=== PATIENT | male | born 1945 | race Caucasian/White ===

== ENCOUNTER 2018-11-15 06:31 | Day surgery (SDC) | payer OTHER ==
[2018-11-15] MEDS ORDERED: Ringers Lactate 1,000 ML IV ONE (07:08)
[2018-11-15] MEDS ORDERED: TOBRADEX 0.3-0.1% OPTH OINTMENT ONE (07:14)
[2018-11-15] MEDS ORDERED: BSS OPTHALMIC SOL 15 ML BOT OPTH ONE (07:14)
[2018-11-15] MEDS ORDERED: GENTAMICIN SULF 80 MG/2ML INJ ONE (07:14)
[2018-11-15] MEDS ORDERED: NA CHLORIDE 0.9% 250 ML ONE (07:15)
[2018-11-15] MEDS ORDERED: POVIDONE-IODINE 5% EYE DROPS ONE (07:15)
[2018-11-15] MEDS ORDERED: PROPOFOL 200 MG/20 ML VIAL IV ONE (07:26)
[2018-11-15] MEDS ORDERED: FENTANYL CITR 100 MCG/2 ML ONE (07:26)
[2018-11-15] MEDS ORDERED: MIDAZOLAM HCL 2 MG/2 ML INJ ONE (07:26)
[2018-11-15] MEDS ORDERED: LIDOCAINE 2% MPF 5 ML VIAL ONE (07:26)
[2018-11-15] MEDS ORDERED: ONDANSETRON 4 MG/2 ML VIAL ONE (07:26)
[2018-11-15] MEDS ORDERED: EPHEDRINE SULF 50 MG/ML VIAL ONE (07:31)
[2018-11-15] MEDS ORDERED: GLYCOPYRROLATE 0.2 MG/ML SYR ONE ×2 (07:31→08:59)
[2018-11-15] MEDS: HYDROMORPHONE HCL 1 MG/ML INJ ONE ×2 (09:18→09:23)
[2018-11-15] MEDS ORDERED: HYDROMORPHONE HCL 1 MG/ML INJ ONE (09:33)
[2018-11-15] MEDS ORDERED: KETOROLAC 30 MG/ML INJ ONE (09:46)
[2018-11-15] MEDS ORDERED: HYDROCODONE/APAP 10/325 TAB ONE (10:41)
[2018-11-15 12:50] VITALS: O2SAT 94
[2018-11-15] MEDS ORDERED: MORPHINE 2 MG/ML SYR IV ONE (19:00)
[2018-11-15] MEDS ORDERED: TRAMADOL HCL 50 MG TAB PO PRN (19:09)
--- NOTE | 2018-11-15 19:16 | P.CNS ---
Date of Consult: 11/15/18 Reason for Consult: Pain management Requesting Physician: Mikael Pruitt Primary Care Provider: Dr. Whaley Chief Complaint: Pain control History of Present Illness: 73-year-old male presented as a direct admit by ophthalmology for enucleation of the left eye. Hospitalist was consulted for pain management. Patient had enucleation of the left eye due to distant complications of glaucoma. Patient had glaucoma surgery in 1992. He then suffered a retinal detachment after the procedure. 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 For the past several months he has been dealing with chronic pain to the left eye. Enucleation was recommended by ophthalmology. This was done earlier today. Post surgery pain was 9/10. He was given morphine with improvement. Hospitalist was consulted for pain management. When I saw the patient in the hospital room, pain was better controlled. He had been given morphine. He denied any significant headache, chest pain, shortness of breath or fever. Patient stable this time. He his significant other was at bedside. Patient has taking gabapentin, oral hydrocodone in the past for pain. He also has taking tramadol. No relief was noted therefore surgery-enucleation was recommended. Allergies mold Allergy (Verified 11/11/18 10:59) sinus drainage Home medications list reviewed: Yes Home Medications: Atorvastatin Calcium [Lipitor] 20 mg PO BEDTIME 11/11/18 Metoprolol Succinate [Toprol Xl] 12.5 mg PO DAILY AFTER SUPPER 11/11/18 Multivitamin [Multivitamins] 1 each PO DAILY 11/11/18 Hydrocodone 5/APAP 325 [[place] 5/325] 2 tab PO Q4H PRN 11/15/18 - Past Medical/Surgical History -: Esophageal cancer status post surgery -: Complications left eye from glaucoma/retinal detachment -: Chronic tachycardia -: Hyperlipidemia -: Chronic pain -: Bilateral hip replacement -: Cataract surgery left eye -: Embolization of left eye 11/15/2018 -: Tonsillectomy -: Appendectomy -: Inguinal hernia repair -: Esophageal cancer surgery x2 Psychosocial/ Personal History: Patient has a partner. - Family History Mother Medical History: Heart disease, Hypertension, Diabetes Brother Medical History: Heart disease Sister Medical History: Hypertension - Social History Smoking Status: Never smoker Alcohol use: No CD- Drugs: No Caffeine use: Yes Place of Residence: Home Review of Systems General: Unremarkable Eyes: As per HPI ENT: Unremarkable Respiratory: Unremarkable Cardiovascular: Unremarkable Gastrointestinal: Unremarkable Genitourinary: Unremarkable Musculoskeletal: Unremarkable Integumentary: As per HPI (Bandage to the left eye noted) Neurological: Unremarkable Lymphatics: Unremarkable Physical Examination Temp Pulse Resp BP Pulse Ox 97.9 F 57 17 134/65 11/15/18 13:09 11/15/18 13:09 11/15/18 13:09 11/15/18 13:09 General: Alert, In no apparent distress, Oriented x3, Cooperative HEENT: Atraumatic, Normocephalic, Other (Bandage to the left eye in noted. No swelling to the periphery. No erythema noted. No bleeding noted.) Neck: Supple, No Thyromegaly Respiratory: Clear to auscultation bilaterally, Normal air movement Cardiovascular: Normal pulses, Regular rate/rhythm Gastrointestinal: Normal bowel sounds, Soft and benign, Non-distended, No tenderness, No masses, No rebound, No guarding Musculoskeletal: No erythema, No tenderness, No warmth Integumentary: No tenderness/swelling, No erythema, No warmth, No cyanosis Neurological: Normal speech, Normal strength at 5/5 x4 extr, Normal tone, Normal affect Lymphatics: No axilla or inguinal lymphadenopathy Conclusions/Impression: Impression: Status post enucleation of the left eye from prior distant complications of glaucoma Chronic pain Hyperlipidemia History of esophageal cancer Chronic tachycardia Plan: Status post enucleation of the left eye from prior distant complications of glaucoma: Patient appears stable status post enucleation. Continue with wound care. Ophthalmology to continue care. Likely discharge tomorrow with better control of pain. Thank you for the consultation. Daytime hospitalist will continue pain management. Chronic pain: Patient has been on multiple medications in the past for pain including gabapentin, oral hydrocodone. Patient received morphine this afternoon for severe pain postsurgery. Will provide IV morphine as needed for severe pain. Will start gabapentin 100 mg 1 pill twice daily as scheduled. Will provide tramadol 50 mg 1 pill 3 times a day as needed for mild pain and hydrocodone 7.5 1 pill 3 times a day as needed for moderate pain. Will continue to monitor closely and adjust medication. Daytime hospitalist will continue to manage pain. Hyperlipidemia: Restart home medication of Lipitor. History of esophageal cancer: Patient had surgery over the last year. He is cancer-free at this time. Patient prefers full liquid diet. Will change his diet at this time. Chronic tachycardia: Patient takes metoprolol. Will restart medication. Hold if blood pressure systolic less than 120 or heart rate less than 55. Time Spent Managing Pts care (In Minutes): 55
--- NOTE | 2018-11-15 19:25 | OP ---
Date of Procedure: 11/15/2018 Surgeon: Mikael Pruitt MD Help Desk Operator: George Pruitt MD Preoperative Diagnosis: Blind painful left eye. Procedure Performed: Nucleation, left eye. Description Of Procedure: After being properly identified in the preoperative holding area and confi rming the left eye was the correct eye to be removed multiple times with both the patient and his com panion, the patient was taken back to the operating room where a time-out was performed. Patient was then prepped and draped in the normal sterile fashion. Again, examination of the globe prior to rem oval demonstrated an exotropic globe with a disorganized anterior chamber on the left with a normal-a ppearing eye on the right, consistent with our exam both in the office and the preoperative area. Us ing a pair of Sushma scissors, a 360 degree tenotomy was carried out and then each of the extraocul ar muscles was isolated using a muscle hook and then cut free. Once all 6 extraocular muscles had be en disinserted from the globe, a 4-0 silk suture was passed through just anterior to the prior insert ion points of the medial rectus and lateral rectus. The suture was then used to draw the globe anter ior and hold caught while a pair of enucleation scissors was used to cut the optic nerve segment. Th e globe was removed in 1 piece. This was sent for pathological identification only. An 18 mm spheri carlos conformer was placed into the cavity and after hemostasis was achieved, which did not take along with only minimal cautery, the spherical conformer was sewed into the conjunctiva and Tenon capsule u sing a 6-0 running suture x2, first medial to lateral and then subsequently lateral to medial so that there was a double layered closure. Once this had been performed, the second conformer used to ensu re maintenance of the fornix was placed both implanted previously been soaked in gentamicin solution and then using 6-0 Vicryl suture threaded through a bolster, the suture was placed through the throug h the tarsus and tied in a mattress fashion. On tying down the knots for the Vicryl suture, the remn ant end snapped because I was afraid of the possible integrity of the rest of the suture. A secondar y suture was placed through the bolster. Because of the tight apposition of the lid that was origina lly placed, a needle was not able to be threaded through an attempt was made with a Maori needle, bu t due to his flat nature, this was unsuccessful. Therefore, I did use a 5-0 silk suture going throug h the bolster and again tying in a mattress fashion. Knowing that we will have to trim and cut this wound with careful attention not to cut the Vicryl at that time. The patient was thereafter had the drapes removed and a pressure patch placed over the eye as well as over the superior portion of the h ead using Kerlix bandages and he was awoken from general anesthesia and taken to the postoperative ho lding area in stable condition, having tolerated the procedure well. There were no complications. Estimated Blood Loss: Less than 5 mL. Specimen Sent: The whole globe as above. Drain And Implants: Listed as above as well. Patient is to follow up with myself Dr. Mikael Pruitt, the [facility] tomorrow morning . JHONG/KELLEL Voice ID: [id number] Report ID: [id number]
[2018-11-15] MEDS ORDERED: ATORVASTATIN 20 MG TAB PO SCH (21:00)
[2018-11-15] MEDS: HYDROCODONE/APAP 7.5/325 MG TAB PO PRN (21:05)
[2018-11-15] MEDS: GABAPENTIN 100 MG CAP PO SCH (21:06)
[2018-11-15 22:27] VITALS: BMI 23.7
[2018-11-15] MEDS: MORPHINE 2 MG/ML SYR IV PRN ×2 (23:26→23:43)
[2018-11-16] MEDS: HYDROCODONE/APAP 7.5/325 MG TAB PO PRN ×2 (05:48→11:15)
[2018-11-16] MEDS ORDERED: INFLUENZA VACCINE (for 3y+) 0.5 ML DOSE IMVAC ONE (06:00)
[2018-11-16] MEDS: GABAPENTIN 100 MG CAP PO SCH (08:41)
[2018-11-16] MEDS ORDERED: MULTIVITAMIN TAB PO SCH (09:00)
[2018-11-16 12:56] VITALS: BP 115/57; TEMP 97.9
[2018-11-16] MEDS ORDERED: METOPROLOL XL 25 MG TAB PO SCH (17:30)
== END 2018-11-16 15:03 | disposition home or self-care (01) ==
LOC: OR 06:31 → 4TH 17:46 → OR 11-16 15:03
PROVIDERS: ATTEND Ophthalmology
PROC: 08T1XZZ Resection of Left Eye, External Approach (ICD-10-PCS; principal; 2018-11-15 07:30)
DX: H54.40 Blindness, one eye, unspecified eye (principal); I10 Essential (primary) hypertension; R00.0 Tachycardia, unspecified; E78.5 Hyperlipidemia, unspecified; G89.29 Other chronic pain; Z85.01 Personal history of malignant neoplasm of esophagus; Z83.3 Family history of diabetes mellitus; Z82.49 Family history of ischemic heart disease and other diseases of the circulatory system
CPT/HCPCS: 88300; 90471; 65101; J2704; Q2035; J1580; J2250; J3010; J2270 ×2; J1170 ×2; J2405

== ENCOUNTER 2020-06-28 07:20 | Day surgery (SDC) | payer OTHER ==
[2020-06-28] MEDS ORDERED: NS 0.9% VIAL 10 ML ONE (09:40)
[2020-06-28] MEDS: BOTU TOX TYPE A 100 UNIT/VIAL ID ONE ×2 (09:42→10:10)
[2020-06-28] MEDS ORDERED: SUGAMMADEX SODIUM 200 MG/2 ML VIAL IV ONE (09:54)
[2020-06-28] MEDS ORDERED: SUCCINYLCHOLINE 20 MG/ML (10 ML) IV ONE (09:54)
[2020-06-28] MEDS ORDERED: FENTANYL CITR 100 MCG/2 ML ONE (09:56)
[2020-06-28] MEDS ORDERED: propofoL 200 MG/20 ML VIAL IV ONE (09:56)
[2020-06-28] MEDS ORDERED: ONDANSETRON 4 MG/2 ML VIAL ONE (09:57)
[2020-06-28] MEDS ORDERED: dexAMETHasone 4 MG/ML VIAL ONE (09:57)
[2020-06-28] MEDS ORDERED: LIDOCAINE 2% MPF 5 ML VIAL ONE (09:57)
[2020-06-28] MEDS ORDERED: EPINEPHRINE/PF 1 MG/ML AMP ONE (10:02)
[2020-06-28] MEDS ORDERED: LIDOCAINE 1% W/EPI 1:100,000 MDV 20 ML VIAL ONE (10:02)
[2020-06-28] MEDS ORDERED: ROCURONIUM 50 MG/5 ML VIAL IV ONE (10:13)
--- NOTE | 2020-06-28 10:49 | P.BOP ---
Preoperative diagnosis: Dysphagia, CP spasm Postoperative diagnosis: same Primary procedure: Rigid esophagoscopy with theraputic injection Director Of Event Management: NONE,NONE Estimated blood loss: nil Specimen: none Findings: prominent CP muscle, 28 units in 4 7u/0.1ml aliquots Anesthesia: General Complications: None Fluids & blood products: see anestesia record Transferred to: Recovery Room Condition: Good
[2020-06-28 11:16] VITALS: O2SAT 100
--- NOTE | 2020-06-28 12:43 | OP ---
Date of Procedure: 06/28/2020 Surgeon: Iram Quintero MD Preoperative Diagnosis: Dysphagia with cricopharyngeal spasm and history of lower esophageal cancer, status post surgical dissection. Procedure: Rigid esophagoscopy with injection of botulinum toxin to the cricopharyngeus. Description Of Procedure: The patient was brought to the operating room. He was placed under genera l anesthesia. A shoulder roll was placed. The neck was extended and head supported. A rubber tooth guard was applied to the upper dentition. The 25 cm rigid esophagoscopy that was prepared and advan tanya under direct visualization through the oral cavity, oropharynx and hypopharynx, and into the esop hageal introitus. The instrument was slowly advanced examining the mucosa. The cricopharyngeal musc le was noted to be prominent. The scope was passed through this area to the length of the instrument . There were no obvious submucosal or mucosal abnormalities within the esophagus. There was reflux of moderate secretions, which were suctioned. The esophagoscope was then removed and the injection m aterial prepared by surgeon. The 100 units bottle of therapeutic botulinum toxin was reconstituted w ith 1.4 mL of preservative free sterile saline resulting in a concentration of 7 units per 0.1 mL. T he Sidekick injection syringe was filled with the botulinum toxin and the remaining Botox solution wa s placed in the syringe and attached to the needle. The rigid esophagoscopy was repeated and the cri copharyngeal muscle was visualized at the tip of the esophagoscope. Four injections of 0.1 mL were p laced at approximately 0830, 0630, 0530, and 0330 along the posterior aspect of the cricopharyngeus m uscle. A total of 28 units were injected. The area was inspected and there was no significant bleed ing. No additional dilation was felt to be necessary. The esophagoscope was removed slowly, during which time, the piriform sinuses, retinoid true and false vocal folds, epiglottis, vallecula and orop harynx were thoroughly examined and there were no significant mucosal lesions noted. The mouth guard was removed and the patient was returned to care of Anesthesia for awakening and extubation in the o perating room. Due to the necessity for complete paralysis until the conclusion of the procedure, th e patient required paralytics and rapid reversal agent was given by the anesthesiologist to shorten t he overall duration of the case from the end of the surgical case until extubation. Complications: None. Specimens: None. Disposition: The patient will be discharged home later today in the care of friends and family and w ill follow up with Dr. Quintero in 10 days for re-evaluation. MIKAELA Voice ID: [id number] Report ID: [id number]
[2020-06-28 12:45] VITALS: BP 103/54; TEMP 97.6
== END 2020-06-28 12:25 | disposition home or self-care (01) ==
LOC: OR 07:20
PROVIDERS: ATTEND Otolaryngology
PROC: 3E0G8GC Introduction of Other Therapeutic Substance into Upper GI, Via Natural or Artificial Opening Endoscopic (ICD-10-PCS; principal; 2020-06-28 09:15)
DX: R13.10 Dysphagia, unspecified (principal); K22.4 Dyskinesia of esophagus; Z85.01 Personal history of malignant neoplasm of esophagus; Z20.822 Contact with and (suspected) exposure to COVID-19
CPT/HCPCS: 43192; U0003; J2704; J1100; J0330; J0585; J3010; J2405; J0171

== ENCOUNTER 2021-04-21 12:16 | Emergency (ER) | payer MEDICARE, OTHER ==
--- OUTSIDE RECORDS SUMMARY | 2021-04-21 12:18 | XMS REPORT | Continuity of Care Document ---
:1945 Author Organization [facility] t Address [address] [place] [address] Care Team Providers Name Role Phone Agustin Whaley Attending Clinician Unavailable LUPE Attending Clinician Unavailable Ige-Odungenevieve_J_AH Attending Clinician Unavailable Ige-Keturah_J_AH Admitting Clinician Unavailable Payers Payer Name Policy Type Policy Number Effective Date Expiration Date [id number] (MEDICARE 00:00:00 REPLACEMENT HMO) [employer] [place] - [id number] 2019 [employer] (MEDICARE 00:00:00 REPLACEMENT/[place] GE - HMO) Problems This patient has no known problems. Allergies, Adverse Reactions, Alerts This patient has no known allergies or adverse reactions. Medications Ordered Filled Start Stop Current Ordering Indication Dosage Frequency Signature Comments Components Source Medication Medication Date Date Medication? Clinician (SIG) Name Name Escitalopra Escitalopra 2018-02 Yes Na Whaley [address] [facility] Oxalate m Oxalate 1-25 [facility] Flonase Flonase Yes Na Whaley [address] [facility] Lipitor Lipitor Yes Na Whaley [address] [facility] Metoprolol Metoprolol Yes Na Whaley [address] [facility] Succinate Succinate [facility] Cetirizine Cetirizine Yes Na Whaley [address] [facility] HCl HCl [facility] Acetaminoph Acetaminoph Yes Na Whaley [address] [facility] en en as needed [facility] Omeprazole Omeprazole Yes Na Whaley [address] [facility] 30 minutes [facility] before [facility] morning [facility] Procedures This patient has no known procedures. Encounters Start End Encounter Admission Attending Care Care Encounter Source Date/Time Date/Time Type Type Clinicians Facility Department ID 2021-03-12 Outpatient Margarita Whaley [facility] [id number] [facility]13 [facility] 2021-03-12 Outpatient Margarita Whaley [facility] [id number] [facility] 14[facility]30:43 [facility] 2021-03-12 Outpatient Margarita Whaley [facility] [id number] [facility] [address] 12:33:48 [id number] [facility] 2021-03-12 Outpatient Margarita Whaley [facility] [id number] [facility] [address] 12:31:16 [id number] [facility] 2021-03-12 Outpatient Margarita Whaley [facility] [id number] [facility] [address] 11:38:29 [id number] [facility] 2021-02-18 2021-02-18 ambulatory [facility] [id number] [facility] 2020-12-27 2020-12-27 Outpatient [facility] [id number] [facility] 12:00:00 12:00:00 [id number] 2020-10-08 2020-10-08 Outpatient [facility] [id number] [facility] 2020-07-09 2020-07-09 Outpatient [facility] [id number] [facility] 2020-04-11 2020-04-11 Outpatient [facility] [id number] [facility] 2019-10-10 2019-10-10 Outpatient [facility] [id number] [place] 00:00:00 00:00:00 [place] [address] [facility] 2019-10-07 2019-10-07 [facility] [id number] [facility] 17:50:00 17:50:00 [facility] [employer] [facility] 2019-10-05 2019-10-05 [facility] [id number] [facility] 13:00:00 13:00:00 t [employer] [facility] 2019-10-05 2019-10-05 [facility] [id number] [facility] 13:00:00 13:00:00 t [employer] [facility] 2019-09-15 2019-09-15 [facility] [id number] 14:38:00 14:38:00 t [employer] [facility] 2019-04-05 2019-04-05 Outpatient [facility] [id number] [facility] 07:18:00 07:18:00 _J_ [id number] Family Practic e 2019-01-09 2019-01-09 [facility] [id number] [facility] 11[facility]20:00 11:20:00 t [employer] [facility] 2019-01-05 2019-01-05 [facility] [id number] [facility] 16:43:00 16:43:00 t [employer] [facility] 2018-09-07 2018-09-07 [facility] [id number] [facility] 10:40:00 10:40:00 t [employer] [facility] 2018-06-10 2018-06-10 [facility] [id number] [facility] 01:31:00 01:31:00 t [employer] [facility] 2018-06-06 2018-06-06 [facility] [id number] [facility] 14:40:00 14:40:00 t [employer] [facility] 2018-03-07 2018-03-07 [facility] [id number] [facility] 11:00:00 11:00:00 t [employer] [facility] 2018-02-17 2018-02-17 [facility] [id number] [facility] 15:54:00 15:54:00 t [employer] [facility] 2018-02-01 2018-02-01 [facility] [id number] [facility] 10:07:00 10:07:00 t [employer] [facility] 2018-01-31 2018-01-31 [facility] [id number] [facility] 12:33:00 12:33:00 t [employer] [facility] 2017-10-07 2017-10-07 [facility] [id number] [facility] 14:00:00 14:00:00 t [employer] [facility] Results This patient has no known results.
[2021-04-21 13:16] LABS: Absolute Lymphocytes (CBC) 1.7 K/uL (0.7-4.9); Hematocrit 41.1 % (39.6-49.0); Lymphocytes % 30.5 % (15.3-44.8); MPV 7.8 fL (7.6-11.3); RBC Red Blood Cell Count 4.53 M/uL (4.33-5.43)
[2021-04-21 13:39] LABS: Protime INR 1.03
[2021-04-21 13:45] LABS: Albumin 3.8 g/dL (3.4-5.0); Bilirubin Direct 0.1 mg/dL (0-0.2); Bilirubin Total 0.5 mg/dL (0.2-1.0); Magnesium 2.6 mg/dL (1.8-2.4); Potassium 4.6 mmol/L (3.5-5.1); Protein, Total 7.1 g/dL (6.4-8.2)
--- NOTE | 2021-04-21 14:18 | RAD REPORT ---
EXAM DESCRIPTION: RAD - Chest Single View - 04/21/2021 2:06 pm CLINICAL HISTORY: CHEST PAIN Chest pain. COMPARISON: Chest Pa And Lat (2 Views) dated 08/24/2016 FINDINGS: Portable technique limits examination quality. Postsurgical changes are present in the mediastinum. The lungs are emphysematous. No focal infiltrate is evident. The heart is normal in size. The inferior portion of both lungs is excluded from the pro jection. IMPRESSION: Moderate COPD.
--- NOTE | 2021-04-21 14:59 | RAD REPORT ---
EXAM DESCRIPTION: CT - Chest For Pe Angio - 04/21/2021 2:44 pm CLINICAL HISTORY: Chest pain. CHEST PAIN COMPARISON: No comparisons TECHNIQUE: CT angiogram of the pulmonary arteries was performed with MIP. All CT scans are performed using dose optimization technique as appropriate and may include automated exposure control or mA/KV adjustment according to patient size. FINDINGS: No evidence of pulmonary thromboembolism. No acute aortic finding demonstrated. The lungs are clear. Postsurgical changes are present about the esophagus. No significant pericardial or pleural fluid. No concerning bony finding. IMPRESSION: No evidence of pulmonary thromboembolism. No acute lung findings. Postsurgical changes are present about the esophagus.
--- NOTE | 2021-04-21 15:03 | RAD REPORT ---
EXAM DESCRIPTION: CTAbdomen Pelvis W Contrast - 04/21/2021 2:44 pm CLINICAL HISTORY: Abdominal pain. ABD PAIN COMPARISON: No comparisons TECHNIQUE: Biphasic CT imaging of the abdomen and pelvis was performed with 100 ml non-ionic IV cont rast. All CT scans are performed using dose optimization technique as appropriate and may include automated exposure control or mA/KV adjustment according to patient size. FINDINGS: The lung bases are clear.Postsurgical changes inferior esophagus. The liver contains a 10 mm cyst in the left lobe. Spleen, pancreas, adrenal glands and kidneys show n o significant abnormal process. No bowel obstruction, free air, free fluid or abscess. Sigmoid diverticulosis coli without diverticul itis. Nonvisualized appendix. No evidence of significant lymphadenopathy. Bilateral hip arthroplasties noted. Moderate lumbar degenerative changes. IMPRESSION: No acute intra-abdominal or pelvic finding. Sigmoid diverticulosis coli without diverticulitis.
[2021-04-21 15:12] LABS: Troponin High Sensitivity 4.6 pg/mL (<58.9)
--- NOTE | 2021-04-21 16:36 | ER ---
Nurse's Notes [facility] Name: Cortes Dubose Jr Age: 75 yrs Sex: Male : 1945 Arrival Date: 04/21/2021 Time: 12:22 Bed 25 Private MD: Diagnosis: Chest Wall Strain Presentation: 04/21 12:28 Chief complaint: Patient states: "I have an increasing pain in my lower rib cage area ab2 on both sides that radiates to my back and it started 10 days ago. Its getting difficult to sleep. It feels like there is a knife in my ribs. My Dr. Mcdonald sent me here for an Xray." Pt denies any chest pain, SOB or urinary symptoms. Coronavirus screen: Vaccine status: Patient reports receiving the 2nd dose of the covid vaccine. Client denies travel out of the [place] in the last 14 days. At this time, the client does not indicate any symptoms associated with coronavirus-19. Ebola Screen: Patient negative for fever greater than or equal to 101.5 degrees Fahrenheit, and additional compatible Ebola Virus Disease symptoms Patient denies exposure to infectious person. Patient denies travel to an Ebola-affected area in the 21 days before illness onset. No symptoms or risks identified at this time. Initial Sepsis Screen: Does the patient meet any 2 criteria? No. Patient's initial sepsis screen is negative. Does the patient have a suspected source of infection? No. Patient's initial sepsis screen is negative. Risk Assessment: Do you want to hurt yourself or someone else? Patient reports no desire to harm self or others. Onset of symptoms is unknown. 12:28 Method Of Arrival: Ambulatory ab2 12:28 Acuity: DILAN 4 ab2 12:35 Chief complaint:. ab2 Triage Assessment: 12:33 General: Appears in no apparent distress. uncomfortable, Behavior is calm, cooperative, ab2 appropriate for age. Pain: Complains of pain in diaphragm Pain does not radiate. Pain currently is 8 out of 10 on a pain scale. Pain: Complains of pain in left low back and right low back. EENT: No deficits noted. No signs and/or symptoms were reported regarding the EENT system. Neuro: No deficits noted. Level of Consciousness is awake, alert, obeys commands, Oriented to person, place, time, situation, Appropriate for age Regular Senior Care Provider are equal bilaterally Moves all extremities. Gait is steady, Speech is normal, Facial symmetry appears normal. Cardiovascular: No deficits noted. Denies chest pain, shortness of breath. Respiratory: No deficits noted. Airway is patent Respiratory effort is even, unlabored, Respiratory pattern is regular, symmetrical. GI: No deficits noted. No signs and/or symptoms were reported involving the gastrointestinal system. : No deficits noted. No signs and/or symptoms were reported regarding the genitourinary system. Derm: No deficits noted. No signs and/or symptoms reported regarding the dermatologic system. Skin is intact, is healthy with good turgor, Skin is dry, Skin is pink, warm \\T\\ dry. Musculoskeletal: Range of motion: intact in all extremities, Reports pain in left low back and right low back. Historical: - Allergies: 12:32 No Known Allergies; ab2 - Home Meds: 12:32 atorvastatin oral [Active]; Omeprazole Oral [Active]; ab2 - PMHx: 12:32 esophagus cancer; ab2 - Immunization history:: Adult Immunizations up to date, Client reports receiving the 2nd dose of the Covid vaccine, Pneumococcal vaccine is up to date, Flu vaccine is up to date. - Social history:: Smoking status: Patient denies any tobacco usage or history of. Screenin:33 Abuse screen: Denies threats or abuse. Denies injuries from another. Nutritional ab2 screening: No deficits noted. Tuberculosis screening: No symptoms or risk factors identified. Fall Risk None identified. Assessment: 14:05 Reassessment: see triage. ss7 16:38 Reassessment:. General: Appears in no apparent distress. comfortable, Behavior is calm, ss7 cooperative, appropriate for age. Neuro: Level of Consciousness is awake, alert, obeys commands, Oriented to person, place, time, situation. Cardiovascular: Heart tones S1 S2. Respiratory: Breath sounds are clear bilaterally. GI: Abdomen is flat. : No deficits noted. EENT: No deficits noted. Derm: No deficits noted. Musculoskeletal: No deficits noted. Vital Signs: 12:28 BP 126 / 66; Pulse 56; Resp 18; Temp 98.8(TE); Pulse Ox 100% on R/A; Weight 79.38 kg; ab2 Height 6 ft. 1 in. (185.42 cm); Pain 8/10; 14:00 BP 116 / 62; Pulse 57; Resp 18; Pulse Ox 100% on R/A; ss7 16:38 BP 126 / 56; Pulse 49; Resp 20; Pulse Ox 100% on R/A; ss7 12:28 Body Mass Index 23.09 (79.38 kg, 185.42 cm) ab2 ED Course: 12:22 Patient arrived in ED. ds1 12:32 Triage completed. ab2 12:33 Arm band placed on left wrist. ab2 12:37 Power Barnes PA is PHCP. m 12:37 Deirdre Mccallum MD is Attending Physician. m 13:02 Laura Basurto, SAM is Primary Nurse. ss7 13:03 Basic Metabolic Panel Sent. ss7 13:03 CBC with Diff Sent. ss7 13:03 LFT's Sent. ss7 13:03 Magnesium Sent. ss7 13:03 NT PRO-BNP Sent. ss7 13:03 PT-INR Sent. ss7 13:03 Troponin HS Sent. ss7 14:06 XRAY Chest (1 view) In Process Unspecified. EDMS 14:44 CT Chest For PE Angio In Process Unspecified. EDMS 14:44 CT Abd/Pelvis - IV Contrast Only In Process Unspecified. EDMS 16:39 No provider procedures requiring assistance completed. Inserted saline lock: 20 gauge ss7 in right antecubital area, using aseptic technique. 16:40 Patient has correct armband on for positive identification. ss7 16:53 IV discontinued, intact. ss7 Administered Medications: No medications were administered Outcome: 16:35 Discharge ordered by MD. [facility] 16:39 Discharged to home ambulatory. ss7 16:39 Condition: good 16:39 Discharge instructions given to patient, Instructed on discharge instructions, Demonstrated understanding of instructions. 16:53 Patient left the ED. ss7 Signatures: Dispatcher [employer] EDMS Power Barnes PA PA Georgette Burch ds1 Omar Villalobos ab2 Laura Basurto, RN RN ss7 Corrections: (The following items were deleted from the chart) 12:36 12:28 Chief complaint: Patient states: "I have an increasing pain in my lower rib cage ab2 area on both sides that started 10 days ago. Its getting difficult to sleep. It feels like there is a knife in my ribs. My Dr. Mcdonald sent me here for an Xray." ab2
--- NOTE | 2021-04-21 16:36 | EDPHYS ---
Physician Documentation [facility] Name: Cortes Dubose Jr Age: 75 yrs Sex: Male : 1945 Arrival Date: 04/21/2021 Time: 12:22 Bed 25 Private MD: ED Physician Deirdre Mccallum HPI: 04/21 12:46 This 75 yrs old Male presents to ER via Ambulatory with complaints of Back Pain. jmm 12:46 The patient presents with pain that is acute, with no known mechanism of injury. The jmm symptoms are located in the left subscapular area and right subscapular area. Onset: The symptoms/episode began/occurred gradually, 1 week(s) ago. The pain does not radiate. Associated signs and symptoms: Pertinent negatives: abdominal pain, fever, vomiting, weakness. Modifying factors: The patient symptoms are alleviated by nothing, the patient symptoms are aggravated by any movement, coughing. This is a 75 year old male with a history of esophageal cancer that presents to the ED with complaints of back pain beginning approx 1 week ago. Patient denies fever, vomiting, known injury. Patient is s/p esophageal cancer removal. Patient also complains of right arm pain. Denies weakness or injury. . Historical: - Allergies: 12:32 No Known Allergies; ab2 - Home Meds: 12:32 atorvastatin oral [Active]; Omeprazole Oral [Active]; ab2 - PMHx: 12:32 esophagus cancer; ab2 - Immunization history:: Adult Immunizations up to date, Client reports receiving the 2nd dose of the Covid vaccine, Pneumococcal vaccine is up to date, Flu vaccine is up to date. - Social history:: Smoking status: Patient denies any tobacco usage or history of. ROS: 12:46 Constitutional: Negative for fever, chills, and weight loss, Cardiovascular: Negative jmm for chest pain, palpitations, and edema, Respiratory: Negative for shortness of breath, cough, wheezing, and pleuritic chest pain. 12:46 Back: Positive for pain at rest, pain with movement. 12:46 All other systems are negative. Exam: 12:46 Constitutional: This is a well developed, well nourished patient who is awake, alert, jmm and in no acute distress. Head/Face: atraumatic. Eyes: EOMI, no conjunctival erythema appreciated ENT: Moist Mucus Membranes Neck: Trachea midline, Supple Chest/axilla: Normal chest wall appearance and motion. Cardiovascular: Regular rate and rhythm. No edema appreciated Respiratory: Normal respirations, no respiratory distress appreciated Abdomen/GI: Non distended, soft 12:46 Skin: General appearance color normal MS/ Extremity: Moves all extremities, no obvious deformities appreciated, no edema noted to the lower extremities Neuro: Awake and alert Psych: Behavior is normal, Mood is normal, Patient is cooperative and pleasant 12:46 Back: pain, that is mild, of the left subscapular area and right subscapular area. Vital Signs: 12:28 BP 126 / 66; Pulse 56; Resp 18; Temp 98.8(TE); Pulse Ox 100% on R/A; Weight 79.38 kg; ab2 Height 6 ft. 1 in. (185.42 cm); Pain 8/10; 14:00 BP 116 / 62; Pulse 57; Resp 18; Pulse Ox 100% on R/A; ss7 16:38 BP 126 / 56; Pulse 49; Resp 20; Pulse Ox 100% on R/A; ss7 12:28 Body Mass Index 23.09 (79.38 kg, 185.42 cm) ab2 MDM: 12:46 Patient medically screened. [facility] 16:34 Data reviewed: vital signs, nurses notes. Counseling: I had a detailed discussion with uziel the patient and/or guardian regarding: the historical points, exam findings, and any diagnostic results supporting the discharge/admit diagnosis, lab results, radiology results, the need for outpatient follow up, to return to the emergency department if symptoms worsen or persist or if there are any questions or concerns that arise at home. 17:29 ED course: Patient is alert and non toxic in appearance in the ED. Imaging studies uziel negative for an acute process. Patient advised to follow up with pcp and otherwise given strict return precautions. patient understood and agrees with the plan of care. . 03 12:56 Order name: Basic Metabolic Panel; Complete Time: 15:25 [facility] 04/21 12:56 Order name: CBC with Diff; Complete Time: 13:19 [facility] 04/21 12:56 Order name: LFT's; Complete Time: 15:25 [facility] 04/21 12:56 Order name: Magnesium; Complete Time: 15:25 [facility] 04/21 12:56 Order name: NT PRO-BNP; Complete Time: 15:25 [facility] 04/21 12:56 Order name: PT-INR; Complete Time: 13:39 [facility] 04/21 12:56 Order name: Troponin HS; Complete Time: 15:25 [facility] 04/21 12:56 Order name: XRAY Chest (1 view); Complete Time: 14:20 [facility] 04/21 12:56 Order name: EKG; Complete Time: 12:56 [facility] 04/21 12:56 Order name: Cardiac monitoring; Complete Time: 13:03 [facility] 04/21 12:56 Order name: EKG - Nurse/Tech; Complete Time: 13:33 [facility] 04/21 12:56 Order name: IV Saline Lock; Complete Time: 13:03 [facility] 04/21 14:23 Order name: CT Chest For PE Angio; Complete Time: 15:06 [facility] 04/21 14:23 Order name: CT Abd/Pelvis - IV Contrast Only; Complete Time: 15:06 [facility] 04/21 12:56 Order name: Labs collected and sent; Complete Time: 13:03 [facility] 04/21 12:56 Order name: O2 Per Protocol; Complete Time: 13:03 [facility] 04/21 12:56 Order name: O2 Sat Monitoring; Complete Time: 13:03 [facility] Administered Medications: No medications were administered Disposition Summary: 04/21/21 16:35 Discharge Ordered Location: Home [facility] Condition: Stable [facility] Diagnosis - Chest Wall Strain [facility] Followup: [facility] - With: Private Physician - When: 2 - 3 days - Reason: Recheck today's complaints, Continuance of care, Re-evaluation by your physician Discharge Instructions: - Discharge Summary Sheet [facility] - Rib Contusion [facility] Forms: - Medication Reconciliation Form [facility] - Thank You Letter [facility] - Antibiotic Education [facility] - Prescription Opioid Use [facility] Prescriptions: - Medrol (Albert) 4 mg Oral Tablets, Dose Pack - take 1 tablet by ORAL route as directed - follow package instructions; 1 [facility] packet; Refills: 0, Product Selection Permitted - orphenadrine citrate 100 mg Oral Tablet Sustained Release - take 1 tablet by ORAL route 2 times per day As needed; 20 tablet; Refills: 0, [facility] Product Selection Permitted Signatures: Dispatcher [employer] Power Schneider PA PA jmm Bleininger Omar ab2
[2021-04-21 17:40] VITALS: TEMP 98.8; O2SAT 100
[2021-04-21 17:41] VITALS: BP 116/62
--- NOTE | 2021-04-22 12:51 | EKG ---
Test Date: 2021-04-21 Test Time: 13:18:03 Wastewater Manager: MARYLOU MEASUREMENT RESULTS: Intervals: Rate: 49 IL: 246 QRSD: 88 QT: 454 QTc: 410 [place]: P: 6 IL: 246 QRS: 69 T: 78 INTERPRETIVE STATEMENTS: Marked sinus bradycardia with 1st degree AV block Septal infarct, age undetermined Abnormal ECG Compared to ECG 06/25/2020 14:35:20 First degree AV block now present Myocardial infarct finding now present Electronically Signed On 04-22-21 12:49:38 REPORT WRITER by Tung Mcelroy
== END 2021-04-21 16:53 | disposition home or self-care (01) ==
LOC: ER 12:16
DX: S29.011A Strain of muscle and tendon of front wall of thorax, initial encounter (principal); Z98.890 Other specified postprocedural states; Z85.01 Personal history of malignant neoplasm of esophagus
CPT/HCPCS: 93005; 85025; 80048; 36415; 83735; 85610; 80076; 84484; 83880; 71275; 74177; 71045; Q9967; 99283

== ENCOUNTER 2021-09-09 10:25 | Day surgery (SDC) | payer MEDICARE ==
[2021-09-04 10:26] LABS: Absolute Lymphocytes (CBC) 1.2 K/uL (0.7-4.9); Hematocrit 40.4 % (39.6-49.0); Lymphocytes % 20.8 % (15.3-44.8); MPV 7.5 fL (7.6-11.3); RBC Red Blood Cell Count 4.59 M/uL (4.33-5.43)
[2021-09-04 10:32] LABS: Protime INR 1.13
[2021-09-04 10:38] LABS: SARS-CoV-2 Antigen Rapid Res Negative (Negative)
[2021-09-04 10:47] LABS: Potassium 4.7 mmol/L (3.5-5.1)
[~2021-09-09 10:25] MED LIST: AMPICILLIN SODIUM 2 GM in NA CHLORIDE 0.9% 100 ML IV ONE; Gentamicin Inj 180 MG in NA CHLORIDE 0.9% 100 ML IVPB ONE
[2021-09-09] MEDS ORDERED: Ringers Lactate 1,000 ML IV ONE (10:55)
[2021-09-09] MEDS ORDERED: CELECOXIB 100 MG CAPSULE ONE ×2 (12:04→12:09)
[2021-09-09] MEDS ORDERED: ACETAMINOPHEN 500 MG TAB ONE (12:04)
[2021-09-09] MEDS ORDERED: propofoL 200 MG/20 ML VIAL IV ONE (12:10)
[2021-09-09] MEDS ORDERED: FENTANYL CITR 100 MCG/2 ML ONE (12:10)
[2021-09-09] MEDS ORDERED: LIDOCAINE 1% MPF 5 ML VIAL ONE (12:10)
[2021-09-09] MEDS ORDERED: MIDAZOLAM HCL 2 MG/2 ML INJ ONE (12:21)
[2021-09-09] MEDS ORDERED: Mastisol Adhesive Liq ONE (13:24)
[2021-09-09] MEDS ORDERED: dexAMETHasone 10 MG/ML VIAL ONE (13:27)
[2021-09-09] MEDS ORDERED: KETOROLAC 30 MG/ML INJ ONE (13:27)
[2021-09-09] MEDS ORDERED: ONDANSETRON 4 MG/2 ML VIAL ONE (13:27)
[2021-09-09] MEDS: MORPHINE 4 MG/ML SYR ONE ×2 (13:35→13:45)
[2021-09-09] MEDS ORDERED: CODEINE 30MG/APAP 300MG TAB PO PRN (13:51)
[2021-09-09] MEDS ORDERED: OPIUM/BELLADONNA SUPPOS (30-16.2 MG) PR ONE ×2 (13:51→14:07)
[2021-09-09] MEDS ORDERED: PHENAZOPYRIDINE 100MG TAB PO ONE ×2 (13:51→15:11)
[2021-09-09 17:42] VITALS: BP 120/52; TEMP 96.9; O2SAT 100
--- NOTE | 2021-09-10 00:02 | OP ---
Surgeon: VANITA TEJADA Preoperative Diagnosis: Benign prostatic hypertrophy with lower urinary tract obstruction. Postoperative Diagnosis: Benign prostatic hypertrophy with lower urinary tract obstruction.. Principle Procedure: 1.Cystoscopy and bipolar transurethral resection of the prostate. 2.Urethral dilation using sounds. Indication For Procedure: This is a -zycc-ort gentleman with bothersome obstructive LUTS d ue to BPH complicated by a urinary tract infection in the setting of a history of prostate cancer in his father and brother, following cystoscopic evaluation revealing significant interdigitating latera l lobar hypertrophy with prominently elevated median bar intravesically projecting and obscuring the ureteral orifices. He was counseled on the potential benefit to surgical therapy versus options to i nclude addition of a 5 alpha reductase inhibitor and he elected to proceed with surgical therapy acco rdingly. Procedure Note: The patient was consented in the preoperative holding area before being transferred to the operative suite where general anesthesia was induced. Of note, in the preoperative holding ar ea, he did specifically ask about erectile dysfunction, and I again informed him that any transurethr al prostate procedure does carry the risk of erectile dysfunction, but my personal experience was a v vincent low risk, less than 1% of any patient complaining of difficulties with erectile dysfunction after this procedure. Procedure In Detail: After being placed under general anesthesia, padded and secured to the table ap propriately, he was given ampicillin and gentamicin, IV antimicrobial prophylaxis, and Pneumo boots w ere provided for DVT prophylaxis. He was placed in the lithotomy position, padded and secured to the table appropriately and his genitalia was prepped using Hibiclens and he was draped in standard fash ion. The case was begun using urethral sounds to dilate the meatus and fossa navicularis to 30-Frenc h. Then, using a visual engineering operator and a 26-Latvian bipolar resectoscope, I was able to traverse the ur ethra into the bladder. The bladder was then briefly surveyed and noted to be markedly trabeculated with cellule formation as it has been previously noted on outpatient cystoscopic evaluation. The ure teral orifices were orthotopic in location, and the median lobe was abutting the trigone. I thus beg an by resecting the median lobe with the left ureteral orifice under direct vision and then performed a similar resection with the right ureteral orifice under direct vision. I continued the resection until the entirety of the median bar and intravesically projecting component of the median lobe was r esected down to the level of the bladder neck and the trigone. I then continued the resection to com plete creation of a smooth trough/channel down to the verumontanum. I then resected into the right l ateral lobe starting at the bladder neck and extending to the apex and continuing to the anterior zon e of the prostate. Similar resection was performed on the left side until a nice smooth channel had been created throughout. On the right side, I took care to try to stay away from the capsule of the prostate since the patient was concerned about the risk of erectile dysfunction. On the left side of the prostate, while capsular fat was noted, I avoided extensive fulguration in the region posterolat erally where the neurovascular bundles exists in order to again try to prevent issues with erectile d ysfunction. All prostate chips were Ellik evacuated from his bladder and I verified no injury to the ureteral orifices. Once I was happy with the completion of the resection including to the apex of t he prostate and there was no longer any interdigitating or even kissing lateral lobar hypertrophy, I ensured absolute fulguration of any and all bleeding vessels with the bladder completely decompressed . Once this was done, I then left the bladder full and removed the resectoscope. I then placed a 22 -Latvian 3-way Kwok catheter into his bladder with ease and placed 30 cc sterile water in the balloon . He was then taken out of the lithotomy position, the catheter was placed to moderate traction, and he was awakened from general anesthesia before being transferred to a stretcher and then to the [facility] room in good condition. Complications: None. Discharge Disposition: He has an appointment scheduled for Wednesday for catheter removal and voiding t rial. He will be discharged with 5 days of antimicrobial as well as Tylenol with codeine for pain ma nagement. Subsequent followup may be established in approximately 3 months with me, interval assessment unless the patient is having specific issues or concern in which case I will see him sooner. LAKISHA/CHARLES Voice ID: [id number] Report ID: [id number]
== END 2021-09-09 16:55 | disposition home or self-care (01) ==
LOC: OR 10:25
PROVIDERS: ATTEND Urology
PROC: 0VT08ZZ Resection of Prostate, Via Natural or Artificial Opening Endoscopic (ICD-10-PCS; principal; 2021-09-09 11:45)
DX: N40.1 Benign prostatic hyperplasia with lower urinary tract symptoms (principal); Z20.822 Contact with and (suspected) exposure to COVID-19; Z80.42 Family history of malignant neoplasm of prostate; Z80.52 Family history of malignant neoplasm of bladder; Z85.01 Personal history of malignant neoplasm of esophagus; Z85.828 Personal history of other malignant neoplasm of skin
CPT/HCPCS: 87088; 85025; 87086; 80048; 36415; 85610; 88305; 87811; 52601; J2704; J1580; J2250; J3010; J1100; J7120; J2405; J0290

== ENCOUNTER 2022-11-27 11:37 | Day surgery (SDC) | payer MEDICARE, OTHER ==
[2022-11-25 14:13] LABS: Absolute Lymphocytes (CBC) 1.4 K/uL (0.7-4.9); Hematocrit 36.9 % (39.6-49.0); Lymphocytes % 24.4 % (15.3-44.8); MCV 81.4 fL (80-100); MPV 7.4 fL (7.6-11.3); Platelets 146 thou/uL (152-406); RBC Red Blood Cell Count 4.53 M/uL (4.33-5.43)
[2022-11-25 14:27] LABS: Potassium 4.7 mEq/L (3.5-5.1)
[2022-11-27] MEDS ORDERED: Ringers Lactate 1,000 ML IV ONE (12:11)
[2022-11-27] MEDS ORDERED: propofoL 200 MG/20 ML VIAL IV ONE (14:19)
[2022-11-27] MEDS ORDERED: ROCURONIUM 50 MG/5 ML VIAL IV ONE (14:19)
[2022-11-27] MEDS ORDERED: FENTANYL CITR 100 MCG/2 ML ONE (14:19)
[2022-11-27] MEDS ORDERED: LIDOCAINE 2% MPF 5 ML VIAL ONE (14:19)
[2022-11-27] MEDS: CEFAZOLIN SODIUM 2 GM/VIAL ONE ×2 (14:22→14:45)
[2022-11-27] MEDS: BUPIVACAINE 0.25% PF 30 ML VIAL ONE ×2 (14:22→15:03)
[2022-11-27] MEDS ORDERED: EPHEDRINE SULF 50 MG/ML VIAL ONE (14:56)
[2022-11-27] MEDS ORDERED: KETOROLAC 30 MG/ML INJ ONE (16:01)
[2022-11-27] MEDS: FENTANYL CITR 100 MCG/2 ML ONE ×4 (16:04→16:59)
[2022-11-27] MEDS: HYDROMORPHONE HCL 1 MG/ML INJ ONE ×4 (16:09→16:49)
--- NOTE | 2022-11-27 16:19 | P.OP ---
Preoperative diagnosis: Ventral Incisional Hernia Postoperative diagnosis: Ventral Incisional Hernia Primary procedure: Laparoscopic Ventral Incisional Hernia Repair with mesh Secondary procedure: Laparoscopic Adhesiolysis > 90 minutes Anesthesia: GETA + Local Estimated blood loss: <5cc Specimen: None Findings: Incarcerated Small bowel, omentum Complications: None Implants: Bard Ventralite ST mesh 15cm round, Sorbafix x 75 Transferred to: Recovery Room Condition: Good
[2022-11-27] MEDS ORDERED: NEOSTIGMINE 1 MG/ML -10 ML VIAL ONE (16:30)
[2022-11-27] MEDS ORDERED: GLYCOPYRROLATE 0.2 MG/ML SYR ONE (16:32)
[2022-11-27] MEDS ORDERED: ONDANSETRON 4 MG/2 ML VIAL ONE (16:55)
[2022-11-27] MEDS ORDERED: MEPERIDINE HCL 50 MG/ML ONE (17:26)
[2022-11-27 17:39] VITALS: BP 116/55; TEMP 97.7; O2SAT 100
[2022-11-27] MEDS ORDERED: HYDROCODONE/APAP 10/325 TAB ONE (18:07)
--- NOTE | 2022-11-28 02:41 | OP ---
Date of Procedure: 11/27/2022 Surgeon: Ryan Vann MD, Preoperative Diagnosis: Ventral incisional hernia. Postoperative Diagnosis: Ventral incisional hernia. Procedure Performed: 1.Laparoscopic ventral incisional hernia repair with mesh. 2.Laparoscopic adhesiolysis greater than 90 minutes. Anesthesia: General endotracheal plus local with 0.25% Marcaine. Estimated Blood Loss: 5 cc. Specimen: None. Findings: Incarcerated small bowel and omentum into incisional ventral hernia after patient had expl oratory laparotomy, esophagectomy repair in the past. The patient had no complications immediately. Implants: Bard Ventralight ST mesh with Echo positioning System, 11 cm round mesh utilized and Sorba Fix AbsorbaTack fixation tacks x75 tacks. Disposition: The patient was transferred to the recovery room in good condition. Procedure In Detail: After informed consent was obtained, patient was brought to the operating room, prepped and draped in the usual sterile fashion. After adequate anesthesia achieved an area of left upper quadrant was anesthetized with 0.25% Marcaine. Sharply incised. A 5 mm trocar was placed und er direct visualization without any complication. Insufflation was obtained to 15 mmHg at this time. There was no injury to vital structures upon entry into the abdomen. Additional trocar was placed in the left lower quadrant. This was similarly anesthetized and sharply incised. A 12 mm trocar was placed under direct visualization without any complication. Two additional trocars were placed in t he right mid abdomen and the right lower quadrant. Both of these were similarly anesthetized and sha rply incised. A 5 mm trocar was placed under direct visualization without any complication. I then visualized the small bowel and omentum being incarcerated into the hernia defect as well as to the mi dline, which required an extensive adhesiolysis using predominantly combination of blunt and sharp di ssection with Endo Shira and LigaSure device. No bowel injuries or enterotomies occurred throughout the procedure. No serosal injuries occurred also throughout the procedure. After the small bowel w as reduced to the normal anatomic position and the omentum was returned to the normal anatomic positi on, the hernia defect was appreciated and found to be approximately 5 cm in size off midline to the r ight of midline. It was a [place] cheese type appearance without allowing for appropriate closure with the Endo Stitch and as such after the area was cleared, I deployed a [address] mesh with Echo positioning system centrally located around this defect. I then secured it to the anterior abdominal wall using a single crown. At this point, the balloon deployment system removed at this p oint and the area was inspected and good hemostasis was achieved. The mesh had good apposition and w as appropriately placed with at least 5 cm of underlay. Circumferentially around I then attached the second ring of SorbaFix AbsorbaTack fixation tacks for double crown type orientation and used a tota l of 75 tacks to secure the mesh to the anterior abdominal wall with good apposition of mesh to the a bdominal wall. No hemostatic measures required. I then closed the 12 mm trocar site using a Patrice- Theresa suture passer with interrupted 0 Vicryl suture with good approximation tissues. The abdomen was completely desufflated under direct visualization without any complications. Remaining trocars were removed. All skin incisions were then copiously irrigated and closed with a 4-0 Monocryl in a r unning fashion. Dermabond placed over top. The patient tolerated the procedure well without complic ations and transferred to PACU in good condition. All counts were correct at the end of the case. KARIS/CHARLES Voice ID: [id number] Report ID: [id number]
== END 2022-11-27 18:18 | disposition home or self-care (01) ==
LOC: OR 11:37
PROVIDERS: ATTEND Surgery
PROC: 0WUF4JZ Supplement Abdominal Wall with Synthetic Substitute, Percutaneous Endoscopic Approach (ICD-10-PCS; principal; 2022-11-27 10:30)
DX: K43.2 Incisional hernia without obstruction or gangrene (principal); E78.00 Pure hypercholesterolemia, unspecified; K21.9 Gastro-esophageal reflux disease without esophagitis
CPT/HCPCS: 85025; 80048; 36415; 49593; J2704; J2710; J2001; J3010 ×2; J2175; J1170 ×2; J2405; J7120